=== PATIENT | female | born 1955 | race Caucasian/White ===

== ENCOUNTER 2019-01-24 07:38 | Day surgery (SDC) | payer BC ==
[2019-01-24] MEDS ORDERED: MIDAZOLAM 1 MG/ML 2 ML INJ ×2 (09:49)
[2019-01-24] MEDS ORDERED: FENTAnyl 50 MCG/ML VIAL (09:49)
== END 2019-01-24 10:49 | disposition home or self-care (01) ==
LOC: GIL 07:38
DX: Z12.11 Encounter for screening for malignant neoplasm of colon (principal); K64.8 Other hemorrhoids; D12.5 Benign neoplasm of sigmoid colon; E03.9 Hypothyroidism, unspecified
CPT/HCPCS: 45385; 88305